=== PATIENT | female | born 1965 | race Native Hawaiian/Other Pacific Islander ===

== ENCOUNTER 2020-10-01 08:35 | Outpatient (CLI) | payer BC | END 2020-10-01 23:59 | disposition home or self-care (01) | LOC: US 08:35 | PROVIDERS: ATTEND Nurse Practitioner Family | DX: R74.8 Abnormal levels of other serum enzymes (principal) ==

== ENCOUNTER 2022-03-25 11:34 | Outpatient (CLI) | payer BC | END 2022-03-25 21:35 | disposition home or self-care (01) | LOC: RAD 11:34 | PROVIDERS: ATTEND Nurse Practitioner Family | DX: M79.672 Pain in left foot (principal); M25.572 Pain in left ankle and joints of left foot ==

== ENCOUNTER 2022-05-14 15:54 | Outpatient (CLI) | payer BC | END 2022-05-14 19:26 | disposition home or self-care (01) | LOC: RAD 15:54 | PROVIDERS: ATTEND Nurse Practitioner Family | DX: M25.572 Pain in left ankle and joints of left foot (principal); M79.672 Pain in left foot ==